=== PATIENT | male | born 1950 | race Caucasian/White ===

== ENCOUNTER 2020-11-03 17:59 | Emergency (ER) | payer MEDICARE, OTHER, SELFPAY ==
[2020-11-03 18:23] VITALS: BP 154/75; PULSE 73; RESP 16; TEMP 36.6; O2SAT 97
[2020-11-03] MEDS: TET,DIPH,PERTUSS(ACELL),VAC/PF 0.5 ML SYRINGE IM (21:23)
--- NOTE | 2020-11-03 22:13 | ED.WOUNDLAC ---
HPI - Wound/Laceration General Chief Complaint: Wound/Laceration Stated Complaint: Laceration to Head Time Seen by Provider: 11/03/20 22:09 Source: patient Mode of arrival: Ambulatory Limitations: no limitations History of Present Illness HPI narrative: This is a 70-year-old male who has a laceration to his scalp. Patient was carrying a table into their RV. They have a small TV that extends out over the edge of the doorway and as he was walking up the stairs and looking at his feet placement he hit his head and lacerated his skin. This is the 3rd time he has done this in the exact scenario. Patient states he does not have any headache otherwise. He denies any loss of consciousness. No neck or back pain. Does take aspirin daily. He denies any other concerns today. Patient states his tetanus has now been updated here in the department. He states he is allergic to penicillin. Related Data Allergies Allergy/AdvReac Type Severity Reaction Status Date / Time Penicillins AdvReac Verified 11/03/20 21:20 Review of Systems Review of Systems ROS Unobtainable: All systems reviewed & are unremarkable except as noted in HPI and below Patient History Social History Smoking Status: Former smoker Smoking Status: Former smoker alcohol intake frequency: a few times a month Substance Use Type: does not use Exam Narrative Exam Narrative: GEN: Patient appears in mild distress. HEAD: The patient has an 8 cm laceration into the scalp running from the crown of the head posteriorly. It is slightly gapped. There was some ooze but no active bleeding. No raccoon/Hwang sign. NECK: Nontender, painless range of motion, trachea midline Negative Nexus criteria, there is no mid line tenderness, distracting injury, altered mental status, neuro deficit, recent EtOH. EYES: PERRLA, EOMI ENT: External inspection normal, trachea is midline,Nares are clear, no septal hematoma, no dental or oral injury, airway is normal and with normal occlusion, No bony tenderness RESP: Chest is nontender and has symmetric movement, no ecchymosis, breath sounds are normal no crackles, wheezes or rales CVS: Heart sounds are normal, no murmur noted, No JVD. ABG/GI: Nontender, soft, normal bowel sounds, no distention, no organomegaly. NEURO: Oriented AOx3, neuro is grossly intact, sensation and motor is normal all 4 extremities moving, cranial nerves II through XII are intact, GCS is 15 PSYCH: Normal mood and affect SKIN: Intact other than noted above, warm and dry, no crepitus and without decubitus EXT: Normal range of motion. Initial Vital Signs Initial Vital Signs: Vital Signs Temperature 97.8 F 11/03/20 18:23 Pulse Rate 73 11/03/20 18:23 Respiratory Rate 16 11/03/20 18:23 Blood Pressure 154/75 H 11/03/20 18:23 Pulse Oximetry 97 11/03/20 18:23 Procedures Laceration Repair Laceration 1: Time of procedure: 10:15 Site: scalp Size (cm): 8 Description: linear Depth: simple, single layer Pre-repair: wound explored, irrigated extensively and deep structures intact Skin layer closed with: ruth Number of sutures: 8 Scores GCS Renetta coma scale eye opening: Spontaneous Renetta coma scale verbal response: Orientated Renetta coma scale motor response: Obey commands Renetta coma scale total score: 15 Course Orders Ordered: Discontinued Medications Diphtheria/Tetanus/Acell Pertussis (Tet,Diph,Pertuss(Acell),Vac/Pf 0.5 Ml Syringe) 0.5 ml IM .ONCE ONE Stop: 11/03/20 21:17 Last Admin: 11/03/20 21:23 Dose: 0.5 ml Documented by: ATAYLOR Lidocaine/Sodium Bicarbonate (Lido 1%/Sod Bicarb 8.4% (10ml) 10 Ml Syringe) 10 ml INJ NOW ONE Stop: 11/03/20 22:11 Last Admin: 11/03/20 22:26 Dose: Not Given Documented by: SELMA Vital Signs Vital signs: Vital Signs - 8 hr 11/03/20 18:23 Temperature 97.8 F Pulse Rate 73 Respiratory Rate 16 Blood Pressure 154/75 H Pulse Oximetry 97 Discharge Plan Departure Patient Disposition: Home Clinical Impression: Laceration of scalp Instructions: DI for Laceration Repair -- [place] Activity Restrictions/Additional Instructions: Happy anniversary. I hope the rest of your day goes much better. Wound Care: Keep wound(s) clean and dry. Wash daily with soap and water only. Do not use over the counter products (alcohol or peroxide)on the wounds unless instructed by a physician. If wound condition worsens (increased/expanding redness, developing fluid blisters, or worsening pain), either contact your doctor for an urgent re-assessment , or return to the Emergency Department. Return to the Emergency Department for any new or worsening symptoms. Return to the ED, urgent care, or vist a primary care doctor for removal or suture or ruth in 7-10 days. Return if fever greater than 100.4 Fahrenheit, increased swelling, increasing pain or worsening symptoms such as increased discharge or spreading redness. Severe headaches, altered mental status, new neck or back pain, persistent vomiting, new numbness, tingling or weakness other new or concerning symptoms.
== END 2020-11-03 22:38 | disposition home or self-care (01) ==
PROVIDERS: Emergency Provider Emergency Medicine
DX: S01.01XA Laceration without foreign body of scalp, initial encounter (principal); W22.8XXA Striking against or struck by other objects, initial encounter; Z23 Encounter for immunization
CPT/HCPCS: 12004; 90471; 99283; 90715